=== PATIENT | male | born 1985 | race Asian ===

== ENCOUNTER 2016-11-05 17:28 | Emergency (ER) | payer OTHER ==
[~2016-11-05] VITALS: Ht 180.3 cm; Wt 90.1 kg
[2016-11-05 17:53] VITALS: TEMP 36.9; Ht 180.3 cm; Wt 90.1 kg
--- NOTE | 2016-11-05 19:19 | DIAGNOSTIC IMAGING REPORT ---
MAXILLOFACIAL CT WITHOUT CONTRAST CLINICAL HISTORY: Nasal bone injury. COMPARISON STUDY: None. TECHNIQUE: A maxillofacial CT was performed without IV contrast. Coronal and sagittal reformats were viewed. FINDINGS: The globes are intact. There is no retrobulbar hematoma. Alignment of the temporomandibular joints is anatomic. There is a comminuted, moderately displaced left nasal bone fracture with associated fracture of the left nasal process of the maxilla. There is a minimally displaced fracture of the anterior aspect of the bony nasal septum. There is a suspected nondisplaced right nasal bone fracture. Orbital floors are intact. No additional facial fractures are identified on this exam. Mastoid air cells are clear. IMPRESSION: 1. Comminuted, moderately displaced left nasal bone fracture with associated fracture of the nasal process of the maxilla. 2. Mildly displaced fracture of the anterior nasal septum. 3. Suspected nondisplaced right nasal bone fracture. Electronically signed by: Benji Diaz M.D. 11/05/2016 7:18 PM Dictated Date/Time: 11/05/2016 7:13 PM
--- NOTE | 2016-11-05 20:10 | EMERGENCY ROOM VISIT NOTE ---
ED Visit Note First contact with patient: 18:21 CHIEF COMPLAINT: Nose injury today HISTORY OF PRESENT ILLNESS: This 30-year-old female patient presents to the emergency department ambulatory after they received an injury to the nose which occurred 2 days ago. The patient states that he was playing basketball and was elbowed in the nose. There was no bleeding from the nares. There was no loss of consciousness, vomiting, or change in behavior after the injury. The nose is swollen and there is constant moderate pain rated as 1/10. The patient denies any change in vision and does not have a headache. The patient was seen at [facility] prior to arrival here and was told that he may need immediate surgery. REVIEW OF SYSTEMS: A 6 system review of systems was completed with positives and pertinent negatives listed in the HPI. ALLERGIES: No known drug allergies MEDICATIONS: No chronic medications PMH: No significant past medical history. SOCIAL HISTORY: The patient is a [employer] student and lives with roommates. PHYSICAL EXAM: Vital Signs: Reviewed Nurse's notes, Vital signs stable. GENERAL : This is a 30-year-old male, in no acute distress, well-developed, well- nourished. EYES: PERRLA, EOMs full, no discharge or injection. NOSE: The bridge of the nose is swollen and tender but the skin is intact. It is not displaced significantly. There is no dried blood in the nares. There is no active bleeding or septal hematoma. FACE: No further facial bone tenderness. NECK: Supple, cervical spine is nontender, no lymphadenopathy. HEAD: Atraumatic , without temporal or scalp tenderness. NEUROLOGICAL: The patient is alert and oriented to person place and time. Sensory and motor functions grossly intact, normal gait, cooperative and appropriate. RADIOGRAPHIC FINDINGS: MAXILLOFACIAL CT WITHOUT CONTRAST FINDINGS: The globes are intact. There is no retrobulbar hematoma. Alignment of the temporomandibular joints is anatomic. There is a comminuted, moderately displaced left nasal bone fracture with associated fracture of the left nasal process of the maxilla. There is a minimally displaced fracture of the anterior aspect of the bony nasal septum. There is a suspected nondisplaced right nasal bone fracture. Orbital floors are intact. No additional facial fractures are identified on this exam. Mastoid air cells are clear. IMPRESSION: 1. Comminuted, moderately displaced left nasal bone fracture with associated fracture of the nasal process of the maxilla. 2. Mildly displaced fracture of the anterior nasal septum. 3. Suspected nondisplaced right nasal bone fracture. EMERGENCY DEPARTMENT COURSE: I examined the patient. A CT scan was performed and showed the above fracture. The patient was given a referral to ENT for further management. He declined analgesics. Conservative measures were discussed. The patient verbalized understanding of my assessment and treatment plan and was discharged home in good condition. DIAGNOSIS: Nasal fracture Allergies Coded Allergies: No Known Allergies (Unverified , 11/05/16) Vital Signs Date Time Temp Pulse Resp B/P Pulse Ox O2 Delivery O2 Flow Rate FiO2 11/05/16 20:26 56 18 129/86 100 11/05/16 17:53 36.9 58 16 133/79 99 Room Air Departure Information Impression Primary Impression: Nasal fracture Dispostion Home / Self-Care Condition GOOD Referrals No Doctor, Assigned (PCP) Hany Walker MD Patient Instructions My [facility] Additional Instructions For pain control, you can use the following [id number] medicines (if >12 yo): - Regular strength (325mg/tab) Tylenol (acetaminophen) 2 tabs every 4-6 hours as needed. Do not exceed 12 tablets in a 24 hour period. Avoid taking more than 4 grams (4000 mg) of Tylenol per day. This includes any other sources of acetaminophen you may take on a regular basis. - Regular strength (200 mg/tab) Advil (ibuprofen) 1-2 tabs every 4-6 hours as needed. Do not exceed a dose of 3200 mg per day. Apply ice to the nose frequently for the next 2-3 days. Call ENT to schedule a follow-up appointment this week. Return to the emergency department with any worsening or new/concerning symptoms. Problem Qualifiers Primary Impression: Nasal fracture Encounter type: initial encounter Fracture type: closed Qualified Codes: S02.2XXA - Fracture of nasal bones, initial encounter for closed fracture
[2016-11-05 20:26] VITALS: BP 129/86; PULSE 56; O2SAT 100
== END 2016-11-05 20:27 | disposition home or self-care (01) ==
LOC: C.EDB 17:32 → C.EDD 20:27
DX: S02.2XXA Fracture of nasal bones, initial encounter for closed fracture (principal); W50.0XXA Accidental hit or strike by another person, initial encounter; Y93.67 Activity, basketball